=== PATIENT | male | born 1995 | race African-American/Black ===

== ENCOUNTER 2024-10-16 20:33 | Emergency (ER) | payer SELFPAY ==
[~2024-10-16] VITALS: Ht 175.3 cm; Wt 100.0 kg
[2024-10-16 21:17] VITALS: O2SAT 100
[2024-10-16] MEDS ORDERED: BO1 TP (21:44)
[2024-10-16 22:00] VITALS: BP 132/72; PULSE 84; RESP 16; TEMP 36.61404; O2SAT 100
[2024-10-16] MEDS: TETANUS, DIPHTHERIA, PERTUSSIS VAC/PF 0.5ML (>10YR OLD) IM ONE (22:06)
== END 2024-10-16 22:09 | disposition home or self-care (01) ==
LOC: ER 20:33
DX: S61.211A Laceration without foreign body of left index finger without damage to nail, initial encounter (principal); W26.0XXA Contact with knife, initial encounter; Y93.89 Activity, other specified; Y92.89 Other specified places as the place of occurrence of the external cause; Y99.8 Other external cause status
CPT/HCPCS: 90715; 90471; 99283; Z7610